=== PATIENT | male | born 1975 | race Asian ===

== ENCOUNTER 2022-12-16 16:08 | Outpatient (CLI) | payer OTHER ==
[2022-12-16 20:38] LABS: BASOPHILS % (AUTO) 0.7 %; HCT - HEMATOCRIT 43.2 % (42.0-52.0); LYMPHOCYTES # (AUTO) 1.9 10^3/uL (1.5-3.5); LYMPHOCYTES % (AUTO) 47.1 %; MEAN CORPUSCULAR HEMOGLOBIN 28.6 pg (27.0-31.0); MEAN CORPUSCULAR HGB CONC 32.4 g/dL (32.0-36.0); MEAN CORPUSCULAR VOLUME 88.2 fL (80.0-94.0); MEAN PLATELET VOLUME 9.2 fL (7.4-11.4); MONOCYTES # (AUTO) 0.3 10^3/uL (0.0-1.0); MONOCYTES % (AUTO) 7.1 %; NEUTROPHILS # (AUTO) 1.8 10^3/uL (1.5-6.6); NEUTROPHILS % (AUTO) 44.1 %; PLT - PLATELET COUNT 288 10^3/uL (130-450); RED CELL DISTRIBUTION WIDTH 12.3 % (12.0-15.0); WHITE BLOOD COUNT 4.1 x10^3/uL (4.8-10.8)
[2022-12-16 20:56] LABS: ALBUMIN 4.6 g/dL (3.2-5.5); ALBUMIN/GLOBULIN RATIO 1.7 (1.0-2.2); BILIRUBIN,TOTAL 0.8 mg/dL (0.2-1.0); CREATININE 1.1 mg/dL (0.6-1.2); POTASSIUM 4.1 mmol/L (3.5-5.0); TOTAL PROTEIN 7.3 g/dL (6.7-8.2)
[2022-12-16 21:09] LABS: T4 (THYROXINE) 8.07 ug/dL (6.09-12.23)
[2022-12-16 21:13] LABS: THYROID STIMULATING HORMONE 1.3 uIU/mL (0.34-5.60)
[2022-12-16 21:15] LABS: FREE T4 (FREE THYROXINE) 1.01 ng/dL (0.58-1.64)
== END 2022-12-16 16:09 | disposition home or self-care (01) ==
LOC: LAB.N 16:08
PROVIDERS: ATTEND Internal Medicine Gastroenterology
DX: K21.9 Gastro-esophageal reflux disease without esophagitis (principal); R19.7 Diarrhea, unspecified; R19.5 Other fecal abnormalities
CPT/HCPCS: 36415; 80053; 82784; 83516; 84436; 84439; 84443; 85025; 86255

== ENCOUNTER 2022-12-21 08:00 | Outpatient (CLI) | payer OTHER ==
[2022-12-23 21:07] LABS: ADENOVIRUS F 40/41 Not Detected (Not Detected); ASTROVIRUS Not Detected (Not Detected); C DIFFICILE TOXIN A/B Not Detected (Not Detected); CAMPYLOBACTER Not Detected (Not Detected); CRYPTOSPORIDIUM Not Detected (Not Detected); CYCLOSPORA CAYETANENSIS Not Detected (Not Detected); ENTAMOEBA HISTOLYTICA Not Detected (Not Detected); ENTEROAGGREGATIVE E COLI Not Detected (Not Detected); ENTEROPATHOGENIC E COLI Not Detected (Not Detected); ENTEROTOXIGENIC E COLI Not Detected (Not Detected); GIARDIA LAMBLIA Not Detected (Not Detected); NOROVIRUS GI/GII Not Detected (Not Detected); PLESIOMONAS SHIGELLOIDES Not Detected (Not Detected); ROTAVIRUS A Not Detected (Not Detected); SALMONELLA Not Detected (Not Detected); SAPOVIRUS Not Detected (Not Detected); SHIGA-TOXIN-PRODUCING E COLI Not Detected (Not Detected); SHIGELLA/ENTEROINVASIVE E COLI Not Detected (Not Detected); VIBRIO Not Detected (Not Detected); VIBRIO CHOLERAE Not Detected (Not Detected); YERSINIA ENTEROCOLITICA Not Detected (Not Detected)
[2022-12-24 16:08] LABS: GIARDIA LAMBLIA AG EIA Negative (Negative)
[2022-12-25 14:09] LABS: 5-HIAA URINE 4.8 mg/L (Undefined); 5-HIAA URINE 24HR 5.8 mg/24 hr (0.0-14.9)
[2022-12-25 16:08] LABS: OVA + PARASITE EXAM Final report (.)
[2022-12-27 14:07] LABS: FECAL FATS NEUTRAL Normal (.); FECAL FATS TOTAL Normal (.)
== END 2022-12-21 23:59 | disposition home or self-care (01) ==
LOC: LAB.R 08:00
PROVIDERS: ATTEND Internal Medicine Pulmonary Disease
DX: K21.9 Gastro-esophageal reflux disease without esophagitis (principal); R19.7 Diarrhea, unspecified; R19.5 Other fecal abnormalities
CPT/HCPCS: 81599; 82705; 82710; 83497; 87045; 87046; 87177; 87209; 87329; 87427; 87507; 89055

== ENCOUNTER 2023-12-29 14:15 | Outpatient (CLI) | payer OTHER ==
--- NOTE | 2023-12-29 15:02 | Sleep Patient Instructions ---
Sleep Center Visit Summary - Patient Visit Information Reason for Visit: Initial consultation - Patient Instructions Additional Instructions: You will continue with CPAP therapy with pressure set at 10 cmH2O. A supply prescription will be updated with your DME. I am adding to update your machine. Please call to set up follow up compliance visit. We encourage you to continue to try to lose weight. Please follow up with the sleep care office one month after obtaining new CPAP. - Clinic Information Contact: [facility] [address] [place] [address] [email or web address] T: [phone]
--- NOTE | 2023-12-29 15:09 | SLEEP CARE CONSULTATION ---
Information from patient questionnaire entered by Ramona Ruvalcaba. I have reviewed and concur with the information entered by Ramona Ruvalcaba. This document represents the service I personally performed and the decisions made by me, Maryjane Frank ARNP. History of Present Illness Service Date and Time: 12/29/2023 1415 Reason for Visit: New patient, sleep apnea on CPAP therapy Chief Complaint: reports: Other (MACHINE) Date of Onset: ON CPAP SINCE 2015 Usual bedtime: 10PM Time it takes to fall asleep: DEPENDS ON THE DAY Snores at night: Yes Observed to quit breathing while asleep: Yes Sleeps alone due to snoring: No Number of times waking at night: NUMEROUS Reasons for waking at night: reports: Choking, Snoring Toss, Turn, or Twitch while sleeping: Yes Recalls having dreams: Yes Usually gets out of bed at: 630AM Feels refreshed in the morning: Yes Morning headache: No Sleepy or fatigued during the day: Yes Ever fallen asleep while driving: Yes Takes day naps: No Prior sleep studies: Yes Year and Where: [facility] in [facility] in [id number] Additional HPI information: TESS KINNEY was previously diagnosed to have unknown, AHI unknown, obstructive sleep apnea-hypopnea syndrome and comes in today to establish care for CPAP therapy. He thinks he was moderate obstructive sleep apnea but forgot to bring in a copy of his sleep study. He will bring it by the office tomorrow. - Parasomnia Symptoms Ever been unable to move upon waking from sleep: No Walks in sleep: No Ever felt weak in the knees when startled or emotional: No Bothered by creepy, crawly, restless sensations in legs: No Problems with memory or concentration: Yes CPAP Compliance Data - Data Reviewed with Patient Average duration of nightly device use: 8:14 hours Compliance rate %: 60 (56/90 days used) Current pressure setting (cmH2O): 10 Humidity settin Average residual AHI: 0.8 Central apnea: 0.2 Compliance data discussion: He has a ResMed Airsense 10 that he received in 2015. He has been getting his supplies from [facility] since 2021. He is using a full face mask, ResMed AirFit F10. His dog chewed up his power cord. He is currently borrowing a friends but he needs a new one. Subjective Missed days of use due to: reports: travel, other (dog chewed up power cord) Patient concerns: reports: mask leak noise, dry mouth, nose, throat (dry mouth, occasionally). denies: aerophagia, mask discomfort, air blowing in eyes, condensation in mask/hose, nasal congestion, epistaxis Observed to snore while using device: No Current pressure setting perceived as: comfortable On therapy, patient: reports: other (not really feeling like sleeping well or being rested overall). 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 Patient is and lives in . Have you smoked in the past 12 months: No Alcohol use: Yes Alcohol amount and frequency: 1-2 BEERS 1-2 WEEKS Caffeine use: Yes Caffeine amount and frequency: 2CUPS QAM Family History Family history of sleep disordered breathing: Yes Family Hx Sleep Apnea: Father: Snoring, Sleep apnea - Untreated Allergies and Home Medications Known drug allergies: No Drug allergies reviewed: Yes Home medication list reviewed: Yes Allergy and home medication list: Home Medications Medication Instructions Recorded Confirmed Last Taken Type Biotin See Rx Instructions .ROUTE .COMPLEX 12/29/23 12/29/23 Unknown History Cholecalciferol (Vitamin D3) See Rx Instructions .ROUTE .COMPLEX 12/29/23 12/29/23 Unknown History [Vitamin D3] Ibuprofen [Motrin] See Rx Instructions .ROUTE .COMPLEX 12/29/23 12/29/23 Unknown History Meloxicam [Mobic] See Rx Instructions .ROUTE .COMPLEX 12/29/23 12/29/23 Unknown History Multivitamin See Rx Instructions .ROUTE .COMPLEX 12/29/23 12/29/23 Unknown History Sildenafil Citrate [Sildenafil] See Rx Instructions .ROUTE .COMPLEX 12/29/23 12/29/23 Unknown History Tamsulosin [Flomax] See Rx Instructions .ROUTE .COMPLEX 12/29/23 12/29/23 Unknown History Turmeric See Rx Instructions .ROUTE .COMPLEX 12/29/23 12/29/23 Unknown History Review of Systems Weight gain over past 5 years: 7 Cardiovascular: denies: high blood pressure Gastrointestinal: reports: heartburn, diarrhea Urinary: reports: incontinence, frequency Neurological: reports: other (VERTIGO) Psychiatric: reports: Attention Deficit Hyperactivity, anxiety, depression Ear/Nose/Throat: reports: wisdom teeth removed Endocrine: reports: too hot or cold, increased appetite Musculoskeletal: reports: joint pain, back pain, mobility problems Physical Exam Vital signs obtained and entered by: RAMONA Escobar MA Blood Pressure: 155/90 (LEFT ARM) Cuff size: regular Heart Rate: 68 O2 Saturation: 96 Height: 5 ft 8 in Weight: 180 lb (with clothes/boots) Body Mass Index: 27.3 BMI Classification: Overweight Neck circumference: 15.5 Heart: regular rate and rhythm Lungs: clear bilaterally Impression and Plan 1. Obstructive Sleep Apnea-Hypopnea Syndrome, unknown, with fair treatment compliance and good apnea control. On CPAP therapy, the patient has better sleep quality and is more rested overall. He has a ResMed Airsense 10 that he r eceived in 2016. He says his dog chewed up his cord and he needs it replaced. The patients CPAP is over 5 years old and of reasonable use. Thus, the CPAP will be updated. A DWO prescription will be made. Compliance guidelines for new device and follow up discussed. Patient's apnea severity and rationale for treatment to reduce apnea, improve sleep quality and reduce cardiovascular and cerebrovascular events was reviewed. I also reviewed the benefit of consistent device use of CPAP for attention deficit, depression and gastric reflux. 2. Overweight, unspecified. Currently patients BMI is 27.3. Obesity increases the risk of apnea, CPAP pressure requirements and overall health risks especially cardiovascular and diabetes. Thus patient is advised to lose weight. * Continue CPAP pressure at 10 cmH2O * Update supply prescription once I have a copy of his sleep study * Notify me if snoring with mask or feeling that the pressure is too much or too little * Attempt to lose weight * Call this office if any problems using CPAP * Return for follow up one month after obtaining new CPAP, or sooner if concerns arise Counseling Topics: Weight loss health impact Prescriptions: Auto CPAP (new device), Device supplies Visit Type: In Office Time Spent with Patient (minutes): 20 Provider Statement: I spent 100% of the Face to Face Visit with the patient with greater than 50% spent counseling the patient and coordination of care.
[2023-12-29 15:18] VITALS: BP 155/90; O2SAT 96
== END 2023-12-29 14:16 | disposition home or self-care (01) ==
LOC: SC 14:15
PROVIDERS: ATTEND Nurse Practitioner Family
DX: G47.33 Obstructive sleep apnea (adult) (pediatric) (principal)
CPT/HCPCS: 99203; 99212